=== PATIENT | male | born 1995 ===

== ENCOUNTER 2024-05-12 20:06 | Emergency (ER) | payer SELFPAY ==
[~2024-05-12] VITALS: Ht 180.3 cm; Wt 82.7 kg
[2024-05-12 20:08] VITALS: TEMP 97.2
[2024-05-12 21:47] VITALS: BP 117/78; PULSE 80
== END 2024-05-12 21:45 | disposition home or self-care (01) ==
LOC: COL.ER 20:06
DX: S52.201A Unspecified fracture of shaft of right ulna, initial encounter for closed fracture (principal); V19.9XXA Pedal cyclist (driver) (passenger) injured in unspecified traffic accident, initial encounter; Y93.55 Activity, bike riding